=== PATIENT | male | born 1975 | race Caucasian/White ===

== ENCOUNTER 2021-06-15 18:13 | Observation (INO) ==
[2021-06-15] MEDS ORDERED: Naloxone 0.4 MG/ML INJ IVP PRN (20:49)
[2021-06-15] MEDS ORDERED: Ondansetron ODT 4 MG TAB.RAPDIS SL PRN (20:49)
[2021-06-15] MEDS ORDERED: Acetaminophen 325 MG TABLET PO PRN (20:49)
[2021-06-15] MEDS ORDERED: Nitroglycerin 0.4 MG TAB.SUBL SL PRN (20:52)
[2021-06-15] MEDS ORDERED: Perflutren Lipid Microsphere 1.3 ML in 0.9 % Sodium Chloride 8.7 ML IVP PRN (20:55)
[2021-06-15] MEDS ORDERED: traZODone 50 MG TABLET PO PRN (21:10)
[2021-06-15] MEDS ORDERED: Dextrose 4 GM Chewable Tablets PO PRN ×2 (22:27)
[2021-06-15] MEDS ORDERED: *HR* Dextrose 50 % in Water (Syg) 50 ML SYRINGE IVP PRN (22:27)
[2021-06-15] MEDS ORDERED: D5% in Water 1,000 ML IVC PRN (22:27)
[2021-06-16 04:07] LABS: Hematocrit 38.6 % (37.5-50.1); Hemoglobin 13.3 g/dL (12.9-16.9); Mean Corpuscular HGB Conc 34.5 g/dL (31.6-35.5); Mean Corpuscular Hemoglobin 31.5 pg (28.0-33.3); Mean Corpuscular Volume 91.5 fL (83.0-100.0); Platelet Count 286 K/mcL (140-400); Red Blood Count 4.22 M/mcL (4.19-5.50); Red Cell Distribution Width 13.8 % (11.5-14.5); White Blood Count 5.6 K/mcL (4.3-11.1)
[2021-06-16 04:28] LABS: BUN/Creatinine Ratio 15 (6-26); Blood Urea Nitrogen 13 mg/dL (6-20); Calcium 8.8 mg/dL (8.6-10.3); Carbon Dioxide 23 mEq/L (23-29); Chloride 109 mEq/L (98-107); Chol/HDL Ratio 2.8 (0-4.9); Cholesterol 88 mg/dL (< 200); Glucose 85 mg/dL (70-105); HDL Cholesterol 31 mg/dL (40-59); LDL Cholesterol,Calculated 43 mg/dL (< 100); Magnesium 1.8 mg/dL (1.6-2.6); Osmolality,Calculated 287 (280-300); Phosphorous 3.5 mg/dL (2.7-4.5); Potassium 3.5 mEq/L (3.5-5.1); Sodium 139 mEq/L (136-145); Triglycerides 68 mg/dL (< 150); eGFR For African Americans > 60 (> 60); eGFR For Non-African Americans > 60 (> 60)
[2021-06-16 04:38] LABS: Thyroid Stimulating Hormone 0.549 mcIU/mL (0.340-5.600)
[2021-06-16 04:46] LABS: Estimated Average Glucose 114 mg/dl; Hemoglobin A1C 5.6 %
[2021-06-16] MEDS ORDERED: Regadenoson 0.4 MG/5 ML SYRINGE IVP ONE (06:06)
[2021-06-16] MEDS: Aspirin 81 MG TAB.CHEW PO SCH (08:24)
[2021-06-16] MEDS: *HR* Heparin 5,000 UNIT/ML VIAL SQ SCH (18:09)
[2021-06-16] MEDS: Metoprolol XL (24 HR) Succ 25 MG TAB.ER.24H PO SCH (18:22)
[2021-06-16] MEDS: Isosorbide MONOnitrate (24 HR) 30 MG TAB.ER.24H PO SCH (18:22)
[2021-06-17] MEDS: *HR* Heparin 5,000 UNIT/ML VIAL SQ SCH (06:13)
[2021-06-17] MEDS: Aspirin 81 MG TAB.CHEW PO SCH (08:05)
[2021-06-17] MEDS: Isosorbide MONOnitrate (24 HR) 30 MG TAB.ER.24H PO SCH (08:05)
[2021-06-17] MEDS: Metoprolol XL (24 HR) Succ 25 MG TAB.ER.24H PO SCH (08:31)
[2021-06-17 10:28] VITALS: BP 131/84; PULSE 50; TEMP 97.6; O2SAT 97
== END 2021-06-17 14:03 | disposition home or self-care (01) ==
LOC: 3BNU → SUATTDRO 20:23
PROVIDERS: ADMIT Family Medicine; ATTEND Internal Medicine